=== PATIENT | male | born 1990 | race Caucasian/White ===

== ENCOUNTER 2019-08-10 09:03 | Emergency (ER) | payer OTHER ==
[2019-08-10 09:15] VITALS: BP 135/90; PULSE 81; TEMP 97.3; BMI 29.7
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
[2019-08-10] MEDS ORDERED: METHOCARBAMOL 500 MG TABLET PO ONE (09:27)
[2019-08-10] MEDS ORDERED: ACETAMINOPHEN 325 MG TABLET (FP) PO ONE (09:27)
[2019-08-10] MEDS ORDERED: diazePAM 5 MG TABLET PO ONE (09:37)
[2019-08-10] MEDS ORDERED: diazePAM 5 MG TABLET ONE (09:54)
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
[2019-08-10] MEDS ORDERED: KETOROLAC TROMETHAMINE 30 MG/1 ML VIAL IVPUSH ONE (11:15)
[2019-08-10] MEDS ORDERED: KETOROLAC TROMETHAMINE 30 MG/1 ML VIAL IM ONE (11:28)
[2019-08-10] MEDS ORDERED: KETOROLAC TROMETHAMINE 30 MG/1 ML VIAL ONE (11:28)
--- NOTE | 2019-08-10 13:33 | EKG ---
Test Reason : Blood Pressure : / mmHG Vent. Rate : 080 BPM Atrial Rate : 080 BPM P-R Int : 154 ms QRS Dur : 098 ms QT Int : 380 ms P-R-T Axes : 069 035 002 degrees QTc Int : 438 ms NORMAL SINUS RHYTHM NORMAL ECG NO PREVIOUS ECGS AVAILABLE Confirmed by ROSA M RODRIGUEZ MD ([id number]) on 08/10/2019 1:33:34 PM Referred By: Confirmed By:ROSA M RODRIGUEZ MD
== END 2019-08-10 12:00 | disposition home or self-care (01) ==
LOC: JER 09:03
PROC: 3E0233Z Introduction of Anti-inflammatory into Muscle, Percutaneous Approach (ICD-10-PCS; principal; 2019-08-10)
PROC: 2W3CX1Z Immobilization of Right Lower Arm using Splint (ICD-10-PCS; 2019-08-10)
DX: M54.2 Cervicalgia (principal); M54.6 Pain in thoracic spine; V43.52XA Car driver injured in collision with other type car in traffic accident, initial encounter; Y92.488 Other paved roadways as the place of occurrence of the external cause; Y93.89 Activity, other specified; Y99.8 Other external cause status; S62.001K Unspecified fracture of navicular [scaphoid] bone of right wrist, subsequent encounter for fracture with nonunion
CPT/HCPCS: 70450-TC; 71045-TC-FY; 72070-TC-FY; 72100-TC-FY; 72125-TC; 73130-TC-LT-FY; 93005; 93010; 99284-25